=== PATIENT | female | born 1995 | race Caucasian/White ===

== ENCOUNTER 2023-11-14 19:18 | Inpatient (IN) ==
[2023-11-14 20:20] LABS: Appearance Urine Clear (Clear); Bacteria Urine Automated None Seen (None Seen); Bilirubin Urine Negative (Negative); Blood Urine 1+ (Negative); Cast Urine Automated 0-2 /lpf (0-2); Color Urine Yellow; Glucose Urine UA Negative (Negative); Ketones Urine Negative (Negative); Leukocyte Esterase Urine Negative (Negative); Nitrite Urine Negative (Negative); Protein Urine 1+ (Negative); Specific Gravity Urine 1.015 (1.000-1.030); Urobilinogen Urine Negative (Negative); WBC Urine Automated 0-5 /hpf (0-5); pH Urine 7.5 (4.5-7.5)
[2023-11-14 20:28] LABS: Basophils # (auto) 0.04 K/uL (0.00-0.20); Basophils % (auto) 0.6 %; Eosinophils # (auto) 0.17 K/uL (0.00-0.50); Eosinophils % (auto) 2.5 %; Hematocrit (blood only) 29.1 % (37.0-47.0); Hemoglobin 10.5 g/dl (12.0-16.0); Immature Granulocytes # (auto) 0.01 K/uL (0.01-0.20); Immature Granulocytes % (auto) 0.1 %; Lymphocytes # (auto) 1.87 K/uL (1.20-3.40); Lymphocytes % (auto) 27.1 %; Mean Corpuscular Hemoglobin 28.3 pg (25.0-34.0); Mean Corpuscular Hgb Conc 36.1 g/dL (32.0-36.0); Mean Corpuscular Volume 78.4 fL (80.0-100.0); Mean Platelet Volume 9.2 fL (9.4-12.4); Monocytes # (auto) 0.63 K/uL (0.11-0.59); Monocytes % (auto) 9.1 %; Neutrophils # (auto) 4.17 K/uL (1.40-6.50); Neutrophils % (auto) 60.6 %; Platelet Count 409 K/uL (130-400); RDW Standard Deviation 42.3 fL (36.4-46.3); Red Blood Count 3.71 M/uL (4.20-5.40); White Blood Count 6.89 K/ul (4.8-10.8)
[2023-11-14 20:40] LABS: Albumin Level 4.4 gm/dl (3.4-5.0); BUN Creatinine Ratio 31.1 (10-20); Bilirubin Direct 0.1 mg/dl (0-0.2); Bilirubin,Total 0.7 mg/dl (0.2-1.0); Creatinine Clr Calc Pharmacy -13.2 ml/min; Est GFR (African American) 44.5 ml/min; Est GFR (Non-African American) 38.4 ml/min; Potassium 2.3 mmol/L (3.5-5.1); Total Protein 7.9 gm/dl (6.0-8.3)
--- NOTE | 2023-11-14 21:40 | History & Physical Report ---
Date of Service November 14, 2023 Assessment & Plan (1) Acute hypokalemia: Plan: Patient sent in for outpatient labs on 11/13 Severe; K 2.3 on arrival Unclear etiology based on patient history, but suspect component of anorexia nervosa Hx evaluation of anorexia nervosa with multiple [place] admissions K riders 10 mg IV x 2 and potassium chloride 40mEq p.o. given in the ED Caution placing potassium too quickly in the setting of JR Will reassess after 2 bags of K rider 10mEq is given, and add more on overnight if needeed Trend BMP q4h EKG ordered, pending Continuous telemetry monitoring A.m. CBC, BMP, mag, ACTH (2) JR (acute kidney injury): Plan: Presumptive based on age; [facility] records pending BUN 55, creatinine 1.77 (no baseline available at this time), and EGFR 38.4 Avoid nephrotoxic agents for possible UDS ordered, pending Creatinine kinase ordered, pending Suspect prerenal due to poor oral intake; BUN/creatinine ratio >30 IVF resuscitation with Plasma-Lyte at 100mL/hr x 2 L Given kidney function, close monitoring for rebound hyperkalemia (3) Anorexia: Plan: Hx of [place] [facility] [place] Patient is not sure if she is amenable to seeing psychiatry while inpatient at this time Please re-approach the subject in a.m. She is amenable to seeing a auto camp attendant (4) Anemia: Plan: Hgb 10.5; MCV low at 78.4 FE panel ordered, pending Ferritin ordered, pending (5) Rhabdomyolysis: Plan: CK level elevated at 1267 Likely contributing to JR IVF resuscitation (as above) AM creatinine kinase (6) Pain in finger of left hand: Plan: Pain in the PIP joint of fourth digit on left hand x several months Finger x-ray on 11/14/2023 revealed soft tissue swelling around the PIP joint concerning for septic arthritis versus inflammatory arthropathy Uric acid elevated at 16.7; ?Gout Acetaminophen as needed for pain for now (7) Severe protein-calorie malnutrition: Plan: Vitamin D and B12 deficiencies Folate level ordered, pending Package Designer consulted (8) Hypermagnesemia: Plan: Mag 2.5 on arrival Follow am mag (9) Hyponatremia: Plan: Mild; Na 134 on arrival Urine sodium, urine osmolality, and serum osmolality ordered, pending Trend BMP (10) Dysmenorrhea: Plan: Patient reports that her menstrual cycles are irregular; have lately been occurring every 2 months, on and off (11) Vitamin D deficiency: (12) Hyperuricemia: Plan Disposition: Admit to PCU telemetry Full code Regular diet VTE PPx: Low risk, encourage ambulation History of Present Illness Chief Complaint: Abnormal Labs/Diagnostic Testing, hypokalemia Primary Care Provider: Phillip Dejesus MD Terri is a 28-year-old female with PMH of anorexia. She presented for abnormal outpatient labs on 11/13, which showed a critically low potassium at 2.2. Patient reports she is asymptomatic at this time. She denies any recent changes in diet. She does endorse a history of anorexia, but denies any recent purging or ingestions. She reports she is amenable to speaking with a auto camp attendant while inpatient. She does endorse left finger pain in her fourth digit has been ongoing for several months. She notes no pain at rest, but pain with touching and movements. No radiation into the wrist. Patient has been taking Tylenol at home for the pain, as well as icing it and this helps. She denies smoking, tobacco use, recreational drug use, and alcohol use. She does not take medications on a daily basis; only taking Tylenol this past week. Patient reports that she has atypical menstrual periods; lately she has been having them every 2 months. She is not sexually active, and denies chance of being . 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 She would not like anyone to be notified that she is in the hospital at this time, but she did provide her fathers emergency contact information if needed. Patient patient is hypotensive at 98/69 at time of admission; vitals otherwise stable. ED course: K rider 10mEq IV x 4 (paused after 2) Potassium chloride 40mEq p.o. Magnesium sulfate 1 g IV ROS: Patient endorses left intermittent finger pain. Patient denies fever, chills, night sweats, dizziness, lightheadedness, headache, chest pain, chest palpitations, SOB, cough, abdominal pain, N/V/D, changes in urinary/bowel habits, burning with urination, blood in the urine or stool, or numbness or tingling in arms or legs. Please see Dr. Mcmahon's attestation for any changes to treatment plan. Allergies Allergy/AdvReac Type Severity Reaction Status Date / Time No Known Allergies Allergy Verified 11/14/23 21:45 Home Medications Medication Instructions Recorded Confirmed Type No Known Home Medications 11/14/23 11/14/23 History Past Med/Surg History Problem List (Updated 11/14/23 @ 22:37 by Hugh Ronquillo PA-C) Hyperuricemia Rhabdomyolysis Vitamin D deficiency Hyponatremia Hypermagnesemia Pain in finger of left hand Dysmenorrhea Severe protein-calorie malnutrition JR (acute kidney injury) Acute hypokalemia Wrist pain, left Strain of extensor muscle, fascia and tendon of left ring finger at wrist and hand level, initial encounter Health care maintenance Anorexia (Acute) Anemia (Acute) EKG abnormality (Acute) Hypokalemia (Acute) Hypomagnesemia (Acute) Medical History (Updated 11/14/23 @ 22:37 by Hugh Ronquillo PA-C) Anorexia Anorexia Surgical History No pertinent past surgical history Family History Grandmother (Maternal) Breast cancer Mother Skin cancer Aunt Skin cancer Grandfather (Maternal) Prostate cancer Denies family history of Ovarian cancer Myocardial infarction Lung cancer Colorectal cancer Stroke Social History Smoking Status: Never smoker Second Hand Exposure: No; Do You Dip or Chew Tobacco: No; Tobacco Cessation Education Requested by Patient: No Hx Alcohol Use: No Hx Substance Use: No Preferred Language: Romansh Communication Ability: Effective Visual Impairment: No Limitations Hearing Ability: Normal Music Copyist Required: No Beliefs That Will Affect Care: None marital status: Single Current Living Situation: Alone current occupational status: unemployed Other Information That Helps Us Care for You: No Feels Safe at Home: Yes Safety Concerns: Feels Safe At This Time Childhood Exposure to Second-Hand Smoke: No Diet: regular Dental Care, Regularly: Yes Physical Activity Frequency: 5-6 Times per Week Seatbelt Use: always Sunscreen Use: Yes Assistive Devices: None Review of Systems Review of Systems: See HPI above Physical Exam Physical Exam: General: no acute distress; pleasant affect; non-toxic appearing; malnourished; hirsutism; cooperative HEENT: normocephalic, atraumatic; no scleral icterus; PERRLA; poor dentition; erosions behind the teeth; vision and hearing grossly intact Neck: supple; no lymphadenopathy; trachea midline Skin: warm, dry without signs of tenting; no cyanosis; no rashes, bruising, or erythema noted CV: chest wall NTP; RRR; S1/S2 normal; no murmurs/rubs/gallops; pulses intact and symmetric at radial, DP, and PT Lungs: no acute respiratory distress; symmetrical chest wall expansion; clear breath sounds across all lung charles w/o adventitious sounds; no wheezing ABD: Soft, NTP; BS present; no rebound/guarding; no distention Left hand: The fourth digit is tender to palpation at the proximal interphalangeal joint; no erythema; with isolation of the distal interphalangeal joint, she does exhibit ability to fully bend her finger MSK: no tics or fasciculations; no edema noted in the LEs b/l, nonerythematous Neuro: A&Ox3; normal mood and affect; fluent speech; no focal deficits; sensation grossly intact in the LEs b/l Results & Data Results & Data Vital Signs (Past 12 Hours) Vital Signs Temp Pulse Resp BP Pulse Ox O2 Del Method 11/14/23 19:21 36.5 C 92 H 16 98/69 L 94 Room Air Laboratory Results Abnormal lab results 11/14/23 Range/Units 19:58 RBC 3.71 L (4.20-5.40) M/uL Hgb 10.5 L (12.0-16.0) g/dl Hct 29.1 L (37.0-47.0) % MCV 78.4 L (80.0-100.0) fL MCHC 36.1 H (32.0-36.0) g/dL RDW Coeff of Kavitha 15.0 H (11.5-14.5) % Plt Count 409 H (130-400) K/uL MPV 9.2 L (9.4-12.4) fL Tyler # (Auto) 0.63 H (0.11-0.59) K/uL Sodium 134 L (136-145) mmol/L Potassium 2.3 L* (3.5-5.1) mmol/L Chloride 78 L (98-107) mmol/L Carbon Dioxide 45 H* (21-32) mmol/L BUN 55 H (6-23) mg/dl Creatinine 1.77 H (0.6-1.2) mg/dl BUN/Creatinine Ratio 31.1 H (10-20) Glucose 137 H (70-99(Fasting)) mg/dl AST 61 H (13-39) U/L Urine Protein 1+ H (Negative) Urine Blood 1+ H (Negative) Urine RBC (Auto) 3-5 H (0-2) /hpf U Epithel Cells (Auto) 6-10 H (0-2) /hpf ECG Additional Comments: ECG ordered, pending Code Status & VTE Plan Code Status Full code (patient reports that she would want her father to be medical proxy in the emergency) VTE Prophylaxis Plan VTE Prophylaxis will be ordered: Yes Supervising Physician Co-Signing Physician Notes Attending addendum: I have physically seen this patient, have supervised the JASON's activities, and agree with the H&P unless as otherwise noted. Assessment and Plan: Hypokalemia- Potassium 2.3 on admission Received Klor-Con 40 mEq p.o., and will receive potassium chloride 10 mill equivalent IV riders x 4 BMP, CBC, magnesium every 4 hours Likely associated with decreased oral intake, and acute kidney injury Acute kidney injury/rhabdomyolysis- Creatinine 1.77, CK 1267, uric acid 16.7 Begin IV fluid resuscitation, with Plasma-Lyte at 100 mL/h x 2 L BMP every 4 hours CBC with differential, basic metabolic panel, magnesium and CK levels every morning Osmolal gap calculated as normal Hyperuricemia- Swollen and painful left fourth finger primarily around PIP X-ray without acute bony injury Likely a function of acute gouty arthritis Repeat laboratories in a.m. Start colchicine 0.6 mg p.o. twice daily in the a.m., after continued rehydration overnight Anorexia/protein calorie malnutrition/nutritional deficiencies- Discussed with patient consideration for seeing a psychiatric counselor and for nutrition counseling, she will let us know if she is agreeable B12 level low at 99. Add cyanocobalamin 500 mcg by mouth every morning 25-hydroxy vitamin D level low at 16.8. Add vitamin D 125 mcg by mouth every morning Hemoglobin A1c 4.4, with glucose upon admission 137 Iron studies ordered and pending A.m. cortisol and ACTH ordered and pending PG Care Time/CCT Total # of Minutes Spent Total Time Spent with Patient: Total time spent is greater than 50% in coordination of care (as documented) at patient's floor/unit and/or counseling patient: [place] [address] INT INP/OBS CARE 3/75MIN Patient Type New Medical Decision Making High Complexity Diagnoses Acute hypokalemia E87.6 JR (acute kidney injury) N17.9 Anorexia R63.0 Anemia D64.9 Rhabdomyolysis M62.82 Pain in finger of left hand M79.645 Severe protein-calorie malnutrition E43 Hypermagnesemia E83.41 Hyponatremia E87.1 Dysmenorrhea N94.6 Vitamin D deficiency E55.9 Hyperuricemia E79.0
[2023-11-14] MEDS: POTASSIUM CHLORIDE / WTR 10 MEQ/100 ML PLCT IV SCH (21:49)
[2023-11-14] MEDS: MAGNESIUM SULFATE / D5W 1 GM/100 ML BAG IV STA (21:49)
[2023-11-14] MEDS: POTASSIUM CHLORIDE CRTAB 20 MEQ TABCR PO STA (21:51)
[2023-11-14 21:54] LABS: Magnesium 2.5 mg/dl (1.7-2.4)
--- NOTE | 2023-11-14 22:27 | Emergency Department Note ---
Impression & Plan Acute hypokalemia, JR (acute kidney injury) ED Provider Note NAME: KADY FELIX AGE: 28 SEX: F : 1995 ARRIVES VIA: Walk-In INFORMANT: Patient, ED PROVIDER(S): Derrell Bridges MD CHIEF COMPLAINT: Hypokalemia, elevated creatinine HPI: This is a 28-year-old female presenting for outpatient lab without abnormal. Patient reported she was told she has elevated creatinine and low potassium. This was done on outpatient blood work. Patient notes she has no changes in her life including new medications, dehydration. States she is eating and drinking at her usual baseline. No fevers, chills, nausea, vomiting, oliguria, dysuria. ROS: See above HPI for pertinent positives & negatives. A total of 10 systems reviewed and were otherwise negative. PHYSICAL EXAMINATION: General: resting comfortably in no acute distress, thin Head: Normocephalic and atraumatic Eyes: Normal inspection, extraocular muscles intact Ear, nose, throat: Normal external exam Neck: Normal range of motion Respiratory: lungs clear to auscultation bilaterally Cardiovascular: Regular rate/rhythm, no murmur GI: soft, nontender, no guarding or rebound Extremities: nontender, moves all extremities, swollen left DIP of the fourth finger Neuro: The patient awake and alert, appropriately conversive, no focal deficits, symmetric faces Skin: Warm, dry, and intact MEDICAL DECISION MAKING: This is a 28-year-old female presenting for abnormal lab results. Patient has JR and hyperkalemia on outpatient blood. Will repeat here as well as get urinalysis. -Patient confirmed to have JR with creatinine of 1.77, potassium 2.3, CO2 45, BUN 55 -Unclear etiology at this time as patient denies any current new changes. -Upon record review the patient has anorexia/bulimia. This may be contributing however unclear. -Will admit for further workup and management. Differential diagnosis: Dehydration, medication side effect, anorexia ER treatment provided: See below Diagnostics interpreted by me: ECG: None Cardiac Monitoring: An order was placed for continuous cardiac monitoring. The monitor shows a rate of 86 with sinus rhythm. Laboratory studies: As stated above and show below. Imaging studies: See below. Past Med/Surg History Problem List (Updated 11/14/23 @ 22:24 by Hugh Ronquillo PA-C) Pain in finger of left hand Dysmenorrhea Severe protein-calorie malnutrition JR (acute kidney injury) Acute hypokalemia Wrist pain, left Strain of extensor muscle, fascia and tendon of left ring finger at wrist and hand level, initial encounter Health care maintenance Anorexia (Acute) Anemia (Acute) EKG abnormality (Acute) Hypokalemia (Acute) Hypomagnesemia (Acute) Medical History (Updated 11/14/23 @ 22:24 by Hugh Ronquillo PA-C) Anorexia Anorexia Surgical History No pertinent past surgical history Family History Grandmother (Maternal) Breast cancer Mother Skin cancer Aunt Skin cancer Grandfather (Maternal) Prostate cancer Denies family history of Ovarian cancer Myocardial infarction Lung cancer Colorectal cancer Stroke Social History Smoking Status: Never smoker Second Hand Exposure: No; Do You Dip or Chew Tobacco: No; Hx Alcohol Use: No Hx Substance Use: No Visual Impairment: No Limitations Hearing Ability: Normal Beliefs That Will Affect Care: None marital status: Single Current Living Situation: Alone current occupational status: unemployed Feels Safe at Home: Yes Childhood Exposure to Second-Hand Smoke: No Diet: regular Dental Care, Regularly: Yes Physical Activity Frequency: 5-6 Times per Week Seatbelt Use: always Sunscreen Use: Yes Assistive Devices: None Allergies Allergies Allergy/AdvReac Type Severity Reaction Status Date / Time No Known Allergies Allergy Verified 11/14/23 21:45 Home Meds Home Medications Medication Instructions Recorded Confirmed No Known Home Medications 11/14/23 11/14/23 Results & Data (ED) Vital Signs Vital Signs - 24 hr 11/14/23 19:21 11/14/23 22:06 Temperature 36.5 C Temperature Source Skin Pulse Rate 92 H 86 Respiratory Rate 16 Respiratory Effort / Characteristics Non-Labored Respiratory Depth Normal Blood Pressure 98/69 L Blood Pressure Mean 78 Pulse Oximetry 94 Oxygen Delivery Method Room Air Sepsis Recent Fever Within 48 Hours No Sepsis New/Unexplained Change in Mental Status No Sepsis Action Taken by Nursing No Action Required Laboratory Data 11/14/23 19:58 11/14/23 19:58 Lab Results 11/14/23 Range/Units 19:58 WBC 6.89 (4.8-10.8) K/ul RBC 3.71 L (4.20-5.40) M/uL Hgb 10.5 L (12.0-16.0) g/dl Hct 29.1 L (37.0-47.0) % MCV 78.4 L (80.0-100.0) fL MCH 28.3 (25.0-34.0) pg MCHC 36.1 H (32.0-36.0) g/dL RDW Std Deviation 42.3 (36.4-46.3) fL RDW Coeff of Kavihta 15.0 H (11.5-14.5) % Plt Count 409 H (130-400) K/uL MPV 9.2 L (9.4-12.4) fL Immature Gran % (Auto) 0.1 % Neut % (Auto) 60.6 % Lymph % (Auto) 27.1 % Mckenzie % (Auto) 9.1 % Eos % (Auto) 2.5 % Baso % (Auto) 0.6 % Neut # (Auto) 4.17 (1.40-6.50) K/uL Lymph # (Auto) 1.87 (1.20-3.40) K/uL Mckenzie # (Auto) 0.63 H (0.11-0.59) K/uL Eos # (Auto) 0.17 (0.00-0.50) K/uL Baso # (Auto) 0.04 (0.00-0.20) K/uL Immature Gran # (Auto) 0.01 (0.01-0.20) K/uL Sodium 134 L (136-145) mmol/L Potassium 2.3 L* (3.5-5.1) mmol/L Chloride 78 L (98-107) mmol/L Carbon Dioxide 45 H* (21-32) mmol/L Anion Gap 11 (3-11) BUN 55 H (6-23) mg/dl Creatinine 1.77 H (0.6-1.2) mg/dl Est Cr Clr Drug Dosing -13.2 ml/min Est GFR ( Amer) 44.5 ml/min Est GFR (Non-Af Amer) 38.4 ml/min BUN/Creatinine Ratio 31.1 H (10-20) Glucose 137 H (70-99(Fasting)) mg/dl Calcium 10.0 (8.6-10.3) mg/dl Magnesium 2.5 H (1.7-2.4) mg/dl Total Bilirubin 0.7 (0.2-1.0) mg/dl Direct Bilirubin 0.1 (0-0.2) mg/dl AST 61 H (13-39) U/L ALT 24 (7-52) U/L Alkaline Phosphatase 89 (34-104) U/L Total Protein 7.9 (6.0-8.3) gm/dl Albumin 4.4 (3.4-5.0) gm/dl Lipase 19 (11-82) U/L Urine Color Yellow Urine Appearance Clear (Clear) Urine pH 7.5 (4.5-7.5) Ur Specific Jamieson 1.015 (1.000-1.030) Urine Protein 1+ H (Negative) Urine Glucose (UA) Negative (Negative) Urine Ketones Negative (Negative) Urine Blood 1+ H (Negative) Urine Nitrite Negative (Negative) Urine Bilirubin Negative (Negative) Urine Urobilinogen Negative (Negative) Ur Leukocyte Esterase Negative (Negative) Urine WBC (Auto) 0-5 (0-5) /hpf Urine RBC (Auto) 3-5 H (0-2) /hpf U Hyaline Cast (Auto) 0-2 (0-2) /lpf U Epithel Cells (Auto) 6-10 H (0-2) /hpf Urine Bacteria (Auto) None Seen (None Seen) Administered Medications Potassium Chloride (K Donnell / Wtr) 10 meq in 100 mls @ 100 mls/hr IV Q1H CASEY Stop: 11/15/23 01:29 Last Admin: 11/14/23 21:49 Dose: 100 mls/hr Documented By: MARU Discontinued Medications Magnesium Sulfate/Dextrose (Magnesium Sulfate / D5w) 1 gm in 100 mls @ 100 mls/hr IV NOW STA Stop: 11/14/23 22:21 Last Admin: 11/14/23 21:49 Dose: 100 mls/hr Documented By: MARU Potassium Chloride (Potassium Chloride Crtab 20 Meq Tabcr) 40 meq PO NOW STA Stop: 11/14/23 21:22 Last Admin: 11/14/23 21:51 Dose: 40 meq Documented By: MARU Discharge Plan Visit Data Chief Complaint: Abnormal Labs/Diagnostic Testing Stated Complaint: BLOOD WORK ABNORMAL ED Provider: Derrell Bridges Discharge Problem: Acute hypokalemia, JR (acute kidney injury) Forms Stand Alone Forms: My [facility] Prescriptions Prescriptions: No Action No Known Home Medications Referrals Referrals: Phillip Dejesus MD [Primary Care Provider] -
[2023-11-14 22:33] LABS: Uric Acid 16.7 mg/dl (2.6-7.2)
[2023-11-14 22:54] LABS: Estimated Average Glucose 80 mg/dl; Hemoglobin A1C 4.4 % (4.5-5.6)
[2023-11-14 23:06] LABS: Phosphorus 3.3 mg/dl (2.5-4.9)
[2023-11-14] MEDS ORDERED: ACETAMINOPHEN 325 MG TAB PO PRN (23:24)
[2023-11-14 23:27] LABS: Ferritin 84.4 ng/ml (8-388); Troponin I High Sensitivity 6.9 pg/ml (0-14)
[2023-11-14 23:34] LABS: Amphetamines+Metham, Urine Neg (Neg); Barbiturates, Urine Neg (Neg); Benzodiazepine, Urine Neg (Neg); Cocaine, Urine Neg (Neg); Fentanyl, Urine Neg (Neg); MDMA (Ecstacy), Urine Neg (Neg); Marijuana, Urine Neg (Neg); Methadone, Urine Neg (Neg); Opiate, Urine Neg (Neg); Phencyclidine, Urine Neg (Neg)
[2023-11-14] MEDS: PLASMA-LYTE A 1,000 ML IV SCH (23:36)
[2023-11-15 01:28] LABS: BUN Creatinine Ratio 33.8 (10-20); Calcium 9.4 mg/dl (8.6-10.3); Est GFR (African American) 52.7 ml/min; Est GFR (Non-African American) 45.5 ml/min; Potassium 2.6 mmol/L (3.5-5.1)
[2023-11-15] MEDS: POTASSIUM CHLORIDE / WTR 10 MEQ/100 ML PLCT IV SCH (01:54)
[2023-11-15 04:44] LABS: Basophils # (auto) 0.03 K/uL (0.00-0.20); Basophils % (auto) 0.6 %; Eosinophils # (auto) 0.16 K/uL (0.00-0.50); Hematocrit (blood only) 24.3 % (37.0-47.0); Hemoglobin 8.8 g/dl (12.0-16.0); Immature Granulocytes # (auto) 0.01 K/uL (0.01-0.20); Immature Granulocytes % (auto) 0.2 %; Lymphocytes # (auto) 1.79 K/uL (1.20-3.40); Mean Corpuscular Hemoglobin 28.6 pg (25.0-34.0); Mean Corpuscular Hgb Conc 36.2 g/dL (32.0-36.0); Mean Corpuscular Volume 78.9 fL (80.0-100.0); Mean Platelet Volume 8.9 fL (9.4-12.4); Monocytes # (auto) 0.55 K/uL (0.11-0.59); Monocytes % (auto) 10.1 %; Neutrophils # (auto) 2.88 K/uL (1.40-6.50); Neutrophils % (auto) 53.1 %; Platelet Count 341 K/uL (130-400); RDW Coefficient of Variation 15.1 % (11.5-14.5); RDW Standard Deviation 43.3 fL (36.4-46.3); Red Blood Count 3.08 M/uL (4.20-5.40); White Blood Count 5.42 K/ul (4.8-10.8)
[2023-11-15 04:48] LABS: BUN Creatinine Ratio 32.4 (10-20); Creatinine Clr Calc Pharmacy 40.3 ml/min; Est GFR (African American) 56.7 ml/min; Est GFR (Non-African American) 48.9 ml/min; Magnesium 2.8 mg/dl (1.7-2.4); Potassium 2.7 mmol/L (3.5-5.1)
[2023-11-15] MEDS: POTASSIUM CHLORIDE / WTR 10 MEQ/100 ML PLCT IV ONE (06:23)
--- NOTE | 2023-11-15 07:56 | Hospitalist Progress Note ---
Date of Service November 15, 2023 Assessment & Plan (1) Anorexia: (2) Hypokalemia: (3) JR (acute kidney injury): (4) Severe protein-calorie malnutrition: (5) Dysmenorrhea: (6) Rhabdomyolysis: (7) Hypermagnesemia: (8) Anemia: Plan Terri Seth is a 28yo woman w h/o anorexia and its sequelae including malnutrition, anemia, dysmenorrhea, and electrolyte imbalances. Anorexia nervosa Hypokalemia Severe protein-calorie malnutrition - Patient indicates disordered eating ongoing >= 10 years; BMI 14.4, ~stable since 2020 - K+ 2.3 at arrival, 2.8 this morning; Vit B12 low at 99, Vit D low at 16.8, A1c 4.4 - EKG 11/13: compared with ECG of 07/22/14, septal infarct now Present - On regular diet; nutrition consult for calorie/weight goals - Trend BMP, Mg, Phos q4h Phos dropped to 2.3, back to 3.1 after 15 mmol KPhos - Patient does not seem open to acknowledging/treating ED. Set up with manager critical care, contact PCP, and provide resources for long-term outpt management JR Rhabdomyolysis - Presumptive JR based on age; likely prerenal due to poor oral intake. [facility] [place] records pending - CK 1267 on arrival, now 910; likely contributing to JR - BUN 38 (from 55), Cr 1.53 (from 1.77), EGFR 45.8, BUN/creatinine ratio 24.8 (from 31.1) - UA 11/13: 1+ blood, 1+ protein, 3-5 RBC/hpf, 6-10 epi cells/hpf, Osm 432; UDS neg - Avoid nephrotoxic agents - IVF resuscitation with Plasma-Lyte at 100mL/hr x 2 L - Close monitoring for rebound hyperkalemia Anemia - Hgb 10.5 at arrival; 8.8 today. MCV low (78.9) - Iron studies wnl (Fe 44, TIBC 392, UIBC 348, Ferritin 84.4) - continue monitoring CBC daily Hypermagnesemia - Mg 2.5 on arrival; 2.5 this morning - continue monitoring q4h Admission and Anticipated Discharge Date Admission Date: November 14, 2023 Supervising Physician Co-Signing Physician Notes I personally examined the patient and verified all barboza points of history and exam, discussed case, and agree with decision making with Dr Hudson Feeling okay asks a lot of questions about her labs. Notes that her finger has been the same over about the last yeardoes not really relate exactly what happens, but relates some sort of swelling or injury a year ago but really it is the same now as it has been for months, no worse. Asks questions about potassium. Does not really relate much as far as what she is eating or drinking. Vitals noted, in general she is awake and alert pleasant no distress. HEENT normocephalic atraumatic mucous membranes moist. Breathing unlabored no accessory muscle use good effort. Left hand has a fairly enlarged knuckle with an almost swan-neck deformity, but no other rheumatologic findings, no erythema no edema no joint effusion as best I can tell. JR/hypokalemia in the context of what appears to be a fairly severe eating disordercertainly concerning with the electrolyte deficienciesbut fortunately she is not showing abdominal pain/altered mental status or hypomagnesemia/hypophosphatemia to fit with refeedingobviously continue to follow closely. Rehydrate, replace potassium. Encouraged to follow through with resources, asked our nurse navigator to try to escalate resources available to her including psychology. Continue to follow labs closely. Even after discharge, we will try to encourage her to have weekly labs for at least the near future and a very concrete fluid intake goal medical deformitydoes not appear acute by history or examx-ray is obviously concerning for bony erosionsI suspect some sort of old injury or prior infectiondespite it being there for a year and her apparently not seeking care before, now she seems quite troubled by this. We discussed that there does not appear to be anything acutebut that we would definitely set things in motion to have her see hand orthopedics so that if anything can be done she would be seen by the right specialty. DVT prophylaxisambulation otherwise as above Subjective Patient says she is feeling well this morning. Denies any n/v, weakness, lightheadedness, BETANCOURT, muscle or body aches, palpitations, chest pain, or SOB. She notes pain in her left 3rd finger, which she has had for weeks, attributes to a likely injury, and says is now improved from when it started. Her self-described diet is 3 meals per day, consisting of healthy amount of vegetables and lean proteins (fish, baked chicken), no sodas or caffeine. She refers to her ED as "issues with [her] weight." She reports these issues began near the end of high school. She mentioned no trigger, said she was not an athlete or dancer, and indicated her current low BMI is an improvement from months ago. She reports her menstrual cycle has been disrupted and she is occasionally fatigued. She had questions about her kidney function and what levels of electrolytes are normal/okay for her to be discharged. She mentioned not really experiencing symptoms and being surprised by these numbers; we discussed habituation to abnormal physiologic conditions. We discussed how poor intake can cause these problems, and how addressing the underlying issue is vital to preventing further hospitalizations for similar issues. She did not seem open to acknowledging her disordered eating and deflected further discussion by returning to questions about her kidneys. Review of Systems 2 Review of Systems: Per HPI Physical Exam 2 Physical Exam: General: NAD, malnourished, shows some hirsutism HEENT: NCAT, EOMI, MMM, no eroded enamel noted CV: RRR, no m/r/g Resp: CTAB, nonlabored Abd: soft, nt/nd, +BS Neuro: AOx3, CN 2-12 grossly intact MSK? PIP of 3rd finger of left hand swollen; no tenderness, warmth, erythema, normal ROM Skin: warm, dry, no Ezio's sign Psych: good eye contact, cooperative, thought process linear, lacks insight, very concrete Results & Data Results & Data Vital Signs (Past 12 Hours) Vital Signs Temp Pulse Pulse Pulse Resp BP BP 11/15/23 07:18 36.6 C 64 20 86/55 L 11/15/23 03:42 36.6 C 60 17 88/53 L 11/14/23 23:35 69 11/14/23 23:32 36.6 C 75 19 108/70 11/14/23 23:30 11/14/23 22:45 69 20 11/14/23 22:30 98/64 L 11/14/23 22:12 78 14 11/14/23 22:06 73 11 L 11/14/23 22:06 86 11/14/23 22:04 103/67 Pulse Ox O2 Del Method 11/15/23 07:18 100 Room Air 11/15/23 03:42 97 Room Air 11/14/23 23:35 11/14/23 23:32 97 11/14/23 23:30 Room Air 11/14/23 22:45 96 11/14/23 22:30 11/14/23 22:12 100 11/14/23 22:06 96 11/14/23 22:06 11/14/23 22:04 Laboratory Results 11/15/23 04:13 11/15/23 12:59 Abnormal Labs 11/14/23 11/15/23 11/15/23 19:58 00:41 04:13 RBC 3.71 L 3.08 L Hgb 10.5 L 8.8 L Hct 29.1 L 24.3 L MCV 78.4 L 78.9 L MCHC 36.1 H 36.2 H RDW Coeff of Kavitha 15.0 H 15.1 H Plt Count 409 H MPV 9.2 L 8.9 L [place] # (Auto) 0.63 H Sodium 134 L 135 L Potassium 2.3 L* 2.6 L 2.7 L Chloride 78 L 84 L 88 L Carbon Dioxide 45 H* 41 H* 39 H BUN 55 H 52 H 47 H Creatinine 1.77 H 1.54 H 1.45 H BUN/Creatinine Ratio 31.1 H 33.8 H 32.4 H Glucose 137 H Hemoglobin A1c 4.4 L Uric Acid 16.7 H Phosphorus Magnesium 2.5 H 2.8 H Transferrin % Sat 11 L AST 61 H Total Creatine Kinase 1267 H 910 H Urine Protein 1+ H Urine Blood 1+ H Urine RBC (Auto) 3-5 H U Epithel Cells (Auto) 6-10 H Urine Osmolality 432 L UDS negative Diagnostic Findings Wrist X-ray: Unremarkable right wrist radiographs. Hand X-ray: No acute bony abnormality is identified Finger X-ray: Soft tissue swelling and prominent periarticular erosive changes about the proximal interphalangeal joint are concerning for septic arthritis versus inflammatory arthropathy. Resident Activity Tracking Resident Involvement: Resident Care Provided Care Provided: [facility]
[2023-11-15] MEDS: CHOLECALCIFEROL 125 MCG (5,000 UNITS) TAB PO SCH (08:25)
[2023-11-15] MEDS: COLCHICINE 0.6 MG TAB PO SCH (08:25)
[2023-11-15] MEDS: CEROVITE ADV FORMULA TAB PO SCH (08:26)
[2023-11-15] MEDS: POTASSIUM CHLORIDE CRTAB 20 MEQ TABCR PO SCH (08:26)
[2023-11-15] MEDS: CYANOCOBALAMIN 1000 MCG/ML VIAL IM SCH (08:28)
[2023-11-15] MEDS ORDERED: CYANOCOBALAMIN (B-12) 500 MCG TABLET PO SCH (09:00)
--- NOTE | 2023-11-15 09:30 | Electrocardiogram Report ---
Test Reason : Blood Pressure : / mmHG Vent. Rate : 069 BPM Atrial Rate : 069 BPM P-R Int : 140 ms QRS Dur : 082 ms QT Int : 420 ms P-R-T Axes : 078 076 063 degrees QTc Int : 450 ms Normal sinus rhythm Possible Left atrial enlargement Possible Septal infarct , age undetermined Abnormal ECG When compared with ECG of 22-JUL-2014 23:06, Septal infarct is now Present T wave inversion no longer evident in Inferior leads Confirmed by Ramone Rahman ([id number]) on 11/15/2023 9:30:06 AM Referred By: Phillip Metcalf Confirmed By:Ramone Rahman
[2023-11-15 10:13] LABS: BUN Creatinine Ratio 31.6 (10-20); Calcium 9.4 mg/dl (8.6-10.3); Est GFR (African American) 61.2 ml/min; Est GFR (Non-African American) 52.8 ml/min; Magnesium 2.7 mg/dl (1.7-2.4); Phosphorus 2.3 mg/dl (2.5-4.9); Potassium 2.6 mmol/L (3.5-5.1)
[2023-11-15] MEDS: THIAMINE HCL 100 MG in SYRINGE 9 ML IV SCH (10:18)
[2023-11-15] MEDS ORDERED: POTASSIUM PHOS 3 MMOL/1 ML INFUSION IV STA (12:54)
[2023-11-15 13:47] LABS: BUN Creatinine Ratio 24.8 (10-20); Calcium 9.6 mg/dl (8.6-10.3); Creatinine Clr Calc Pharmacy 38.2 ml/min; Est GFR (African American) 53.1 ml/min; Est GFR (Non-African American) 45.8 ml/min; Magnesium 2.5 mg/dl (1.7-2.4); Phosphorus 3.1 mg/dl (2.5-4.9); Potassium 2.8 mmol/L (3.5-5.1)
[2023-11-15] MEDS: POTASSIUM PHOSPHATE 15 MMOL in SODIUM CHLORIDE 0.9% 250 ML IV ONE (14:00)
[2023-11-15 17:46] LABS: BUN Creatinine Ratio 25.9 (10-20); Calcium 8.9 mg/dl (8.6-10.3); Creatinine Clr Calc Pharmacy 40.9 ml/min; Est GFR (African American) 57.6 ml/min; Est GFR (Non-African American) 49.7 ml/min; Magnesium 2.2 mg/dl (1.7-2.4); Phosphorus 4.8 mg/dl (2.5-4.9)
--- NOTE | 2023-11-15 18:35 | Billing Data ---
Date of Service November 15, 2023 Coding Level of Care Code 05080 SUB INP/OBS CARE MIN
[2023-11-15 21:48] LABS: BUN Creatinine Ratio 26.3 (10-20); Calcium 9.2 mg/dl (8.6-10.3); Creatinine Clr Calc Pharmacy 42.7 ml/min; Est GFR (African American) 60.7 ml/min; Est GFR (Non-African American) 52.4 ml/min; Magnesium 2.2 mg/dl (1.7-2.4); Phosphorus 3.4 mg/dl (2.5-4.9)
--- NOTE | 2023-11-16 18:44 | Billing Data ---
Date of Service November 16, 2023 Coding Level of Care Code 20064 IN/OBS DISCH 30 MIN/LESS
[2023-11-16 19:09] LABS: Albumin Globulin Ratio 1.1 (0.9-2); Albumin Level 3.7 gm/dl (3.4-5.0); BUN Creatinine Ratio 25.2 (10-20); Bilirubin,Total 0.6 mg/dl (0.2-1.0); Calcium 9.6 mg/dl (8.6-10.3); Creatinine Clr Calc Pharmacy 49.1 ml/min; Est GFR (African American) 71.9 ml/min; Est GFR (Non-African American) 62.1 ml/min; Globulin 3.3 gm/dl (2.5-4.0); Potassium 3.6 mmol/L (3.5-5.1)
[2023-11-16 23:23] LABS: Basophils # (auto) 0.02 K/uL (0.00-0.20); Basophils % (auto) 0.4 %; Eosinophils # (auto) 0.18 K/uL (0.00-0.50); Eosinophils % (auto) 3.9 %; Hemoglobin 9.6 g/dl (12.0-16.0); Immature Granulocytes # (auto) 0.01 K/uL (0.01-0.20); Immature Granulocytes % (auto) 0.2 %; Lymphocytes # (auto) 1.91 K/uL (1.20-3.40); Lymphocytes % (auto) 41.2 %; Mean Corpuscular Hemoglobin 28.4 pg (25.0-34.0); Mean Corpuscular Hgb Conc 34.3 g/dL (32.0-36.0); Mean Corpuscular Volume 82.8 fL (80.0-100.0); Mean Platelet Volume 9.2 fL (9.4-12.4); Monocytes # (auto) 0.37 K/uL (0.11-0.59); Neutrophils # (auto) 2.15 K/uL (1.40-6.50); Neutrophils % (auto) 46.3 %; Platelet Count 335 K/uL (130-400); RDW Coefficient of Variation 15.4 % (11.5-14.5); RDW Standard Deviation 46.5 fL (36.4-46.3); Red Blood Count 3.38 M/uL (4.20-5.40); White Blood Count 4.64 K/ul (4.8-10.8)
== END 2023-11-16 16:48 | disposition hospice, home (50) | DRG 682 ==
LOC: ED 19:18 → 2S 22:17 → SUATTDRO 22:17 → 2S 23:00